=== PATIENT | male | born 2000 | race Two or more races ===

== ENCOUNTER 2023-02-15 19:40 | Emergency (ER) | payer MEDICAID, OTHER ==
[~2023-02-15] VITALS: Ht 175.3 cm; Wt 111.0 kg
[2023-02-15] MEDS ORDERED: IBUP-1456 PO (21:30)
[2023-02-15 21:35] VITALS: BP 142/78
== END 2023-02-15 21:37 | disposition home or self-care (01) ==
LOC: ER 19:45
DX: S46.911A Strain of unspecified muscle, fascia and tendon at shoulder and upper arm level, right arm, initial encounter (principal); X58.XXXA Exposure to other specified factors, initial encounter; Y93.89 Activity, other specified; Y92.89 Other specified places as the place of occurrence of the external cause; Y99.8 Other external cause status
CPT/HCPCS: 73080